=== PATIENT | female | born 1950 | race Two or more races ===

== ENCOUNTER → 2017-06-30 | Outpatient (CLI) | payer MEDICARE, OTHER ==
--- NOTE | 2017-07-01 12:05 | REP ---
REASON: Pain after trauma. COMPARISON: None. There is swelling and air density within the region of the olecranon bursa. There is no evidence of an acute fracture or destructive osseous lesion. IMPRESSION: Soft tissue injury as described above without plain radiographic evidence of concomitant bony injury. Signed by Jesus Pugh DO 07/01/2017 08:53 A
== END ==
LOC: M LRY 19:40
PROVIDERS: ATTEND Physician Assistant
DX: S59.902A Unspecified injury of left elbow, initial encounter (principal); R60.0 Localized edema; W19.XXXA Unspecified fall, initial encounter; X58.XXXA Exposure to other specified factors, initial encounter; Y92.9 Unspecified place or not applicable; Y93.9 Activity, unspecified